=== PATIENT | female | born 1955 | race Caucasian/White ===

== ENCOUNTER 2020-08-06 05:25 | Day surgery (SDC) | payer OTHER | END 2020-08-06 10:05 | disposition home or self-care (01) | LOC: AMB-ENDOS 05:25 | PROVIDERS: ATTEND Surgery | DX: D12.5 Benign neoplasm of sigmoid colon (principal); Z20.828 Contact with and (suspected) exposure to other viral communicable diseases ==

== ENCOUNTER 2022-11-14 06:20 | Day surgery (SDC) | payer OTHER | END 2022-11-14 10:30 | disposition home or self-care (01) | LOC: AMB-ENDOS 06:20 | PROVIDERS: ATTEND Surgery | DX: D12.4 Benign neoplasm of descending colon (principal); D12.3 Benign neoplasm of transverse colon; E03.9 Hypothyroidism, unspecified; Z86.010 Personal history of colon polyps; Z20.822 Contact with and (suspected) exposure to COVID-19 ==